=== PATIENT | female | born 1975 | race Two or more races ===

== ENCOUNTER 2017-01-23 15:04 | Emergency (ER) | payer OTHER ==
[~2017-01-23] VITALS: Ht 162.6 cm; Wt 117.5 kg
[2017-01-23 15:05] VITALS: BP 147/89
[2017-01-23] MEDS ORDERED: D ME PO (15:27)
== END 2017-01-23 15:58 | disposition home or self-care (01) ==
LOC: ER 15:07
DX: H10.9 Unspecified conjunctivitis (principal); J40 Bronchitis, not specified as acute or chronic; Z90.49 Acquired absence of other specified parts of digestive tract; Z90.89 Acquired absence of other organs
CPT/HCPCS: 99283; A4606; Z7610

== ENCOUNTER 2017-10-16 22:53 | Emergency (ER) | payer OTHER ==
[~2017-10-16] VITALS: Ht 162.6 cm; Wt 119.7 kg
[~2017-10-16 22:53] MED LIST: D ME PO
[2017-10-16] MEDS ORDERED: ALBUTEROL FS 2.5 MG/3 ML VIAL.NEB NEB ONE (23:30)
[2017-10-16] MEDS ORDERED: IPRATROPIUM NEB FS 0.5 MG/2.5 ML AMPUL.NEB NEB ONE (23:30)
--- NOTE | 2017-10-16 23:30 | NUR ---
42 Y/O FEMALE PLACED IN BED 3 C/O COUGH AND CONGESTION FOR 3 WEEKS.
--- NOTE | 2017-10-16 23:30 | NUR ---
PT SEEN BY MD. BREATHING TREATMENTS ORDERED.
--- NOTE | 2017-10-16 23:47 | NUR ---
CALLED RT FOR BREATHING TX
[2017-10-16] MEDS ORDERED: ALBUTEROL FS 2.5 MG/3 ML VIAL.NEB ONE (23:55)
[2017-10-16] MEDS ORDERED: IPRATROPIUM NEB FS 0.5 MG/2.5 ML AMPUL.NEB ONE (23:55)
[2017-10-17 00:56] VITALS: BP 148/65
--- NOTE | 2017-10-17 00:56 | NUR ---
PT OK TO BE DISCHARGED HOME. Patient discharged to home in stable condition. Written and verbal after care instructions given. Patient verbalizes understanding of instruction.Patient is awake and alert to self, day, and place. PT ambulatory with a steady gait
== END 2017-10-17 00:57 | disposition home or self-care (01) ==
LOC: ER 23:00
DX: J40 Bronchitis, not specified as acute or chronic (principal); K42.9 Umbilical hernia without obstruction or gangrene; Z90.49 Acquired absence of other specified parts of digestive tract; Z90.89 Acquired absence of other organs
CPT/HCPCS: 71010; 94640; 99283; A4606; Z7610